=== PATIENT | male | born 1995 | race Two or more races ===

== ENCOUNTER 2024-01-12 16:13 | Inpatient (IN) ==
[2024-01-12 16:42] LABS: Basophils # (auto) 0.04 K/uL (0.00-0.20); Basophils % (auto) 0.6 %; Eosinophils # (auto) 0.04 K/uL (0.00-0.50); Eosinophils % (auto) 0.6 %; Hematocrit (blood only) 44.8 % (42.0-52.0); Hemoglobin 15.9 g/dl (14.0-18.0); Immature Granulocytes # (auto) 0.01 K/uL (0.01-0.20); Immature Granulocytes % (auto) 0.1 %; Lymphocytes # (auto) 2.14 K/uL (1.20-3.40); Lymphocytes % (auto) 30.3 %; Mean Corpuscular Hemoglobin 30.4 pg (25.0-34.0); Mean Corpuscular Hgb Conc 35.5 g/dL (32.0-36.0); Mean Corpuscular Volume 85.7 fL (80.0-100.0); Mean Platelet Volume 9.3 fL (9.4-12.4); Monocytes # (auto) 0.67 K/uL (0.11-0.59); Monocytes % (auto) 9.5 %; Neutrophils # (auto) 4.16 K/uL (1.40-6.50); Neutrophils % (auto) 58.9 %; Platelet Count 275 K/uL (130-400); RDW Coefficient of Variation 12.4 % (11.5-14.5); Red Blood Count 5.23 M/uL (4.70-6.10); White Blood Count 7.06 K/ul (4.8-10.8)
[2024-01-12] MEDS: fentaNYL citrate PF 100 MCG/2 ML VIAL IV STA (17:17)
--- NOTE | 2024-01-12 17:39 | Emergency Department Note ---
Impression & Plan SBO (small bowel obstruction), Abdominal pain ED Provider Note HISTORY OF PRESENT ILLNESS: Patient is a 28-year-old male presenting with abdominal pain. History is obtained via a friend who acts as hospice liaison. 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 Friend reports the patient developed diffuse abdominal pain starting earlier today. He states that it "feels like when I had abdominal surgery in [place]." No reported fevers today. Denies any nausea or diarrhea. Denies chest pain or shortness of breath. Complains of a stabbing diffuse abdominal pain. He is unsure of what the surgery in [place] was for his upper abdomen. Denies any recent antibiotic use. He takes no medications daily. He does occasionally smoke marijuana. ROS: as above PHYSICAL EXAM: Constitutional: Patient appears in no acute distress. HENT: Head: Normocephalic and atraumatic. Eyes: EOMI, PERRL Mouth/Throat: Mucous membranes moist. Neck: Trachea midline. Neck supple. Cardiovascular: RRR, No murmurs, rubs or gallops. Intact distal pulses. Pulmonary/Chest: No respiratory distress. Breath sounds clear and equal bilaterally. No wheezes or rales. Abdominal: Abdomen soft, no rebound or guarding. Diffuse tenderness to palpation. Musculoskeletal: No edema, tenderness or deformity noted. Skin: Warm and dry. No rash, erythema, pallor or cyanosis Psychiatric: Appropriate mood and affect for situation. Neurological: Alert and keenly responsive. CN II-XII grossly intact, moving all extremities equally and fully. MDM: - Vitals signs showed stable. - History obtained via patient and patient's friend (Quality Improvement Coordinator (Rn)). History as above. - Chronic conditions affecting care: none - Differential diagnoses include, but are not limited to: cholecystitis; pancreatitis; colitis; small bowel obstruction; ischemic gut - Order placed for continuous cardiac monitoring. At this time, monitor showed rate of 72 bpm with normal sinus rhythm, per my interpretation. - External medical records reviewed. - EKG interpreted by myself showed normal sinus rhythm. Rate 67 bpm. QT 358. No acute ischemic changes. Noted to have some ST elevations consistent with benign early repolarization. - Laboratory workup interpreted by myself showed normal WBC; normal lactate; stable electrolytes; normal troponin; normal lipase; normal liver function - UA negative for infection - Patient initially given 50 mcg IV fentanyl for pain control. However, he is still writhing around in pain on reassessment. He was given 4 mg IV morphine and 4 mg IV zofran. - CT abdomen/pelvis with IV contrast focally distended and fluid-filled loops of small bowel in the pelvis with a possible transition point identified concerning for small bowel obstruction. - Discussion was had with nurse case management about patient's case and need for admission - Hospitalist, Dr. Ruby, consulted for admission - Patient admitted to [facility]ist service for further evaluation and management. ASSESSMENT AND PLAN: Diagnosis: abdominal pain; small bowel obstruction Plan: admit Past Med/Surg History Problem List (Updated 01/12/24 @ 20:38 by Marta Low MD) Abdominal pain (Acute) SBO (small bowel obstruction) (Acute) Social History Smoking Status: Never smoker Feels Safe at Home: Yes Results & Data (ED) Vital Signs Vital Signs - 24 hr 01/12/24 16:17 01/12/24 16:36 01/12/24 16:45 Temperature 36.7 C Temperature Source Temporal Artery Scan Pulse Rate 76 63 Pulse Rate [Apical] Respiratory Rate 16 Respiratory Effort / Characteristics Non-Labored Spontaneous Respiratory Depth Normal Blood Pressure 103/60 Blood Pressure [Left Arm] Blood Pressure Mean 74 Blood Pressure Mean [Left Arm] Pulse Oximetry 99 Oxygen Delivery Method Room Air Room Air Sepsis Recent Fever Within 48 Hours No Sepsis New/Unexplained Change in Mental Status N/A Sepsis Action Taken by Nursing No Action Required 01/12/24 19:25 Temperature Temperature Source Pulse Rate Pulse Rate [Apical] 72 Respiratory Rate 18 Respiratory Effort / Characteristics Respiratory Depth Blood Pressure Blood Pressure [Left Arm] 124/68 Blood Pressure Mean Blood Pressure Mean [Left Arm] 86 Pulse Oximetry 98 Oxygen Delivery Method Sepsis Recent Fever Within 48 Hours Sepsis New/Unexplained Change in Mental Status Sepsis Action Taken by Nursing Laboratory Data 01/12/24 16:26 01/12/24 16:26 Lab Results 01/12/24 01/12/24 01/12/24 Range/Units 16:26 18:04 19:00 WBC 7.06 (4.8-10.8) K/ul RBC 5.23 (4.70-6.10) M/uL Hgb 15.9 (14.0-18.0) g/dl Hct 44.8 (42.0-52.0) % MCV 85.7 (80.0-100.0) fL MCH 30.4 (25.0-34.0) pg MCHC 35.5 (32.0-36.0) g/dL RDW Std Deviation 39.0 (36.4-46.3) fL RDW Coeff of Da 12.4 (11.5-14.5) % Plt Count 275 (130-400) K/uL MPV 9.3 L (9.4-12.4) fL Immature Gran % (Auto) 0.1 % Neut % (Auto) 58.9 % Lymph % (Auto) 30.3 % [place] % (Auto) 9.5 % Eos % (Auto) 0.6 % Baso % (Auto) 0.6 % Neut # (Auto) 4.16 (1.40-6.50) K/uL Lymph # (Auto) 2.14 (1.20-3.40) K/uL [place] # (Auto) 0.67 H (0.11-0.59) K/uL Eos # (Auto) 0.04 (0.00-0.50) K/uL Baso # (Auto) 0.04 (0.00-0.20) K/uL Immature Gran # (Auto) 0.01 (0.01-0.20) K/uL Sodium 134 L (136-145) mmol/L Potassium 4.0 (3.5-5.1) mmol/L Chloride 103 (98-107) mmol/L Carbon Dioxide 21 (21-32) mmol/L Anion Gap 10 (3-11) BUN 16 (6-23) mg/dl Creatinine 0.86 (0.6-1.4) mg/dl Est Cr Clr Drug Dosing Not Reportable Est GFR ( Amer) 136.8 ml/min Est GFR (Non-Af Amer) 118.0 ml/min BUN/Creatinine Ratio 18.6 (10-20) Glucose 113 H (70-99(Fasting)) mg/dl Lactate 1.0 (0.4-2.0) mmol/L Calcium 9.8 (8.6-10.3) mg/dl Total Bilirubin 0.6 (0.2-1.0) mg/dl AST 26 (13-39) U/L ALT 14 (7-52) U/L Alkaline Phosphatase 59 (34-104) U/L Troponin I High Sens (0-20) pg/ml Total Protein 7.8 (6.0-8.3) gm/dl Albumin 4.8 (3.4-5.0) gm/dl Globulin 3.0 (2.5-4.0) gm/dl Albumin/Globulin Ratio 1.6 (0.9-2) Lipase 15 (11-82) U/L Urine Color Yellow Urine Appearance Clear (Clear) Urine pH 8.5 H (4.5-7.5) Ur Specific [place] 1.021 (1.000-1.030) Urine Protein Negative (Negative) Urine Glucose (UA) Negative (Negative) Urine Ketones 1+ H (Negative) Urine Blood Negative (Negative) Urine Nitrite Negative (Negative) Urine Bilirubin Negative (Negative) Urine Urobilinogen Negative (Negative) Ur Leukocyte Esterase Negative (Negative) 01/12/24 Range/Units 19:28 WBC (4.8-10.8) K/ul RBC (4.70-6.10) M/uL Hgb (14.0-18.0) g/dl Hct (42.0-52.0) % MCV (80.0-100.0) fL MCH (25.0-34.0) pg MCHC (32.0-36.0) g/dL RDW Std Deviation (36.4-46.3) fL RDW Coeff of Da (11.5-14.5) % Plt Count (130-400) K/uL MPV (9.4-12.4) fL Immature Gran % (Auto) % Neut % (Auto) % Lymph % (Auto) % [place] % (Auto) % Eos % (Auto) % Baso % (Auto) % Neut # (Auto) (1.40-6.50) K/uL Lymph # (Auto) (1.20-3.40) K/uL [place] # (Auto) (0.11-0.59) K/uL Eos # (Auto) (0.00-0.50) K/uL Baso # (Auto) (0.00-0.20) K/uL Immature Gran # (Auto) (0.01-0.20) K/uL Sodium (136-145) mmol/L Potassium (3.5-5.1) mmol/L Chloride (98-107) mmol/L Carbon Dioxide (21-32) mmol/L Anion Gap (3-11) BUN (6-23) mg/dl Creatinine (0.6-1.4) mg/dl Est Cr Clr Drug Dosing Est GFR ( Amer) ml/min Est GFR (Non-Af Amer) ml/min BUN/Creatinine Ratio (10-20) Glucose (70-99(Fasting)) mg/dl Lactate (0.4-2.0) mmol/L Calcium (8.6-10.3) mg/dl Total Bilirubin (0.2-1.0) mg/dl AST (13-39) U/L ALT (7-52) U/L Alkaline Phosphatase (34-104) U/L Troponin I High Sens 2.8 (0-20) pg/ml Total Protein (6.0-8.3) gm/dl Albumin (3.4-5.0) gm/dl Globulin (2.5-4.0) gm/dl Albumin/Globulin Ratio (0.9-2) Lipase (11-82) U/L Urine Color Urine Appearance (Clear) Urine pH (4.5-7.5) Ur Specific [place] (1.000-1.030) Urine Protein (Negative) Urine Glucose (UA) (Negative) Urine Ketones (Negative) Urine Blood (Negative) Urine Nitrite (Negative) Urine Bilirubin (Negative) Urine Urobilinogen (Negative) Ur Leukocyte Esterase (Negative) Administered Medications Sodium Chloride (Nss) 1,000 mls @ 999 mls/hr IV .Q1H1M ONE Stop: 01/12/24 20:56 Last Admin: 01/12/24 20:18 Dose: 999 mls/hr Documented By: NENO Discontinued Medications Fentanyl Citrate (Fentanyl Citrate Pf 100 Mcg/2 Ml Vial) 50 mcg IV NOW STA Stop: 01/12/24 17:13 Last Admin: 01/12/24 17:17 Dose: 50 mcg Documented By: NENO Ioversol (Optiray 320 100ml) 93 ml IV ONCE ONE Stop: 01/12/24 19:07 Last Admin: 01/12/24 19:06 Dose: 93 ml Documented By: JOHAN Morphine Sulfate (Morphine Sulfate 4 Mg/Ml 1 Ml Carp\\Vial) 4 mg IV NOW STA Stop: 06/23/24 17:35 Last Admin: 01/12/24 17:59 Dose: 4 mg Documented By: NENO Ondansetron HCl (Ondansetron Inj 2 Mg/Ml 2 Ml Vial) 4 mg IV NOW STA Stop: 01/12/24 17:35 Last Admin: 01/12/24 17:59 Dose: 4 mg Documented By: NENO Imaging Data Radiologist's Impression: Abdomen/Pelvis CT 01/12/24 17:12 CT SCAN OF THE ABDOMEN AND PELVIS WITH IV CONTRAST CLINICAL HISTORY: Generalized abdominal pain. Vomiting. COMPARISON STUDY: No priors. TECHNIQUE: Following the IV administration of 93 cc of Optiray 320, CT scan of the abdomen and pelvis is performed from the lung bases to the proximal femora. Images are reviewed in the axial, sagittal, and coronal planes. IV contrast was administered without complication. A dose lowering technique was utilized adhering to the principles of ALARA. The examination is degraded by a paucity of intraperitoneal fat and lack of enteric contrast. CT DOSE: 349.96 mGy.cm FINDINGS: Lung bases: The heart is normal in size and without pericardial effusion. The lung bases are clear. Liver: The contrast-enhanced liver is normal in size, contour, and attenuation. There is no intrahepatic biliary ductal dilatation. The hepatic veins and portal veins are patent. Gallbladder: Contracted. Spleen: Normal in size and attenuation. Pancreas: Unremarkable. Adrenal glands: Unremarkable. Kidneys: The contrast enhanced kidneys are normal in size and without hydronephrosis. The kidneys enhance symmetrically. Abdominal vasculature: The abdominal aorta is normal in course and caliber. Bowel: There are distended and fluid-filled loops of small bowel in the pelvis which measure up to 3.2 cm diameter. A possible transition point is seen on image #20 of 55. There is no pneumatosis intestinalis or portal venous gas. The appendix is well-visualized and normal. Peritoneum: There is no intraperitoneal free air or abdominal ascites. Lymphadenopathy: None. Pelvic viscera: The bladder, prostate, and seminal vesicles are normal as visualized. Skeletal structures: No lytic or blastic lesions are seen. IMPRESSION: 1. There are focally distended and fluid-filled loops of small bowel in the pelvis. A possible transition point is identified and this likely represents a small bowel obstruction. Clinical correlation will be essential. 2. No intraperitoneal free air is identified. There is no pneumatosis intestinalis or portal venous gas. 3. Normal appendix. 4. Additional findings as above. ACT 112: Negative or not required by law. Electronically signed by: Stan Vigil M.D. 01/12/2024 8:01 PM Discharge Plan Visit Data Chief Complaint: Abdominal Pain Stated Complaint: ABDOMINAL PAIN ED Provider: Marta Low Discharge Problem: SBO (small bowel obstruction), Abdominal pain Forms Stand Alone Forms: [facility] Referrals Referrals: PCP,NO [Primary Care Provider] -
[2024-01-12 17:51] LABS: Aspartate Aminotransferase 26 U/L (13-39)
[2024-01-12 17:52] LABS: Alanine Aminotransferase 14 U/L (7-52); Albumin Globulin Ratio 1.6 (0.9-2); Albumin Level 4.8 gm/dl (3.4-5.0); Alkaline Phosphatase 59 U/L (34-104); Anion Gap 10 (3-11); BUN Creatinine Ratio 18.6 (10-20); Bilirubin,Total 0.6 mg/dl (0.2-1.0); Blood Urea Nitrogen 16 mg/dl (6-23); Calcium 9.8 mg/dl (8.6-10.3); Carbon Dioxide 21 mmol/L (21-32); Chloride 103 mmol/L (98-107); Est GFR (African American) 136.8 ml/min; Glucose 113 mg/dl (70-99(Fasting)); Lipase 15 U/L (11-82); Sodium 134 mmol/L (136-145); Total Protein 7.8 gm/dl (6.0-8.3)
[2024-01-12] MEDS: MoRPHine SULFATE 4 MG/ML 1 ML CARP\\VIAL IV STA (17:59)
[2024-01-12] MEDS: ONDANSETRON INJ 2 MG/ML 2 ML VIAL IV STA (17:59)
[2024-01-12] MEDS: OPTIRAY 320 100ml IV ONE (19:06)
[2024-01-12 19:18] LABS: Appearance Urine Clear (Clear); Bilirubin Urine Negative (Negative); Blood Urine Negative (Negative); Color Urine Yellow; Glucose Urine UA Negative (Negative); Ketones Urine 1+ (Negative); Leukocyte Esterase Urine Negative (Negative); Nitrite Urine Negative (Negative); Protein Urine Negative (Negative); Specific Gravity Urine 1.021 (1.000-1.030); Urobilinogen Urine Negative (Negative); pH Urine 8.5 (4.5-7.5)
--- NOTE | 2024-01-12 20:03 | CT Scan Report ---
CT SCAN OF THE ABDOMEN AND PELVIS WITH IV CONTRAST CLINICAL HISTORY: Generalized abdominal pain. Vomiting. COMPARISON STUDY: No priors. TECHNIQUE: Following the IV administration of 93 cc of Optiray 320, CT scan of the abdomen and pelvi s is performed from the lung bases to the proximal femora. Images are reviewed in the axial, sagittal , and coronal planes. IV contrast was administered without complication. A dose lowering technique wa s utilized adhering to the principles of ALARA. The examination is degraded by a paucity of intraperi toneal fat and lack of enteric contrast. CT DOSE: 349.96 mGy.cm FINDINGS: Lung bases: The heart is normal in size and without pericardial effusion. The lung bases are clear. Liver: The contrast-enhanced liver is normal in size, contour, and attenuation. There is no intrahepa tic biliary ductal dilatation. The hepatic veins and portal veins are patent. Gallbladder: Contracted. Spleen: Normal in size and attenuation. Pancreas: Unremarkable. Adrenal glands: Unremarkable. Kidneys: The contrast enhanced kidneys are normal in size and without hydronephrosis. The kidneys enh ance symmetrically. Abdominal vasculature: The abdominal aorta is normal in course and caliber. Bowel: There are distended and fluid-filled loops of small bowel in the pelvis which measure up to 3. 2 cm diameter. A possible transition point is seen on image #20 of 55. There is no pneumatosis intest inalis or portal venous gas. The appendix is well-visualized and normal. Peritoneum: There is no intraperitoneal free air or abdominal ascites. Lymphadenopathy: None. Pelvic viscera: The bladder, prostate, and seminal vesicles are normal as visualized. Skeletal structures: No lytic or blastic lesions are seen. IMPRESSION: 1. There are focally distended and fluid-filled loops of small bowel in the pelvis. A possible transi tion point is identified and this likely represents a small bowel obstruction. Clinical correlation w ill be essential. 2. No intraperitoneal free air is identified. There is no pneumatosis intestinalis or portal venous g as. 3. Normal appendix. 4. Additional findings as above. ACT 112: Negative or not required by law. Electronically signed by: Stan Vigil M.D. 01/12/2024 8:01 PM
[2024-01-12] MEDS: SODIUM CHLORIDE 0.9% 1,000 ML IV ONE (20:18)
--- NOTE | 2024-01-13 03:16 | History & Physical Report ---
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 Currently the pain is improved with pain medication. Denies any nausea. Had a bowel movement earlier in the morning. Currently not passing gas. Denies any fevers. Denies chest pain or shortness of breath. No cough. No headache. No runny nose or sore throat. Prior to this event patient states he was walking and climbing steps okay. Patient also reports episodes of loss of perceptions sometimes. Last time it happened when he was watching TV when suddenly felt everything was in the distance and then lost perception of the surroundings for few minutes and during episode he could not speak and after he comes back from the episode he seems confused for about 10 minutes and becomes normal. Denies any tongue biting or incontinence during this episode. Patient smokes marijuana daily. Smokes electric cigarette daily. Drinks alcohol about 3 times a week but not heavily. Denies any other drug use. Currently resting comfortably and hemodynamically stable. Some of the H&P got from his brother who translated for him and some from translation services. Patient is Austrian-speaking. small bowel obstruction came with abdominal pain and CAT scan showing small bowel obstruction history of abdominal surgeries currently pain seems to improve sluggish bowel sounds on exam n.p.o., IV fluids, IV pain meds., IV antiemetics as needed KUB in AM. Surgery consult in a.m. for further recommendations abnormal EKG denies chest pain 2 sets of troponin negative we will follow repeat troponin and echo cardiac consult in a.m. for further recommendations questionable seizures patient has the episodes of loss of perception of surroundings and seems confused after the episode will get EEG, CT head and neuroconsult. DVT prophylaxis Lovenox disposition med/telemetry full code. 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 Currently the pain is improved with pain medication. Denies any nausea. Had a bowel movement earlier in the morning. Currently not passing gas. Denies any fevers. Denies chest pain or shortness of breath. No cough. No headache. No runny nose or sore throat. Prior to this event patient states he was walking and climbing steps okay. Patient also reports episodes of loss of perceptions sometimes. Last time it happened when he was watching TV when suddenly felt everything was in the distance and then lost perception of the surroundings for few minutes and during episode he could not speak and after he comes back from the episode he seems confused for about 10 minutes and becomes normal. Denies any tongue biting or incontinence during this episode. Patient smokes marijuana daily. Smokes electric cigarette daily. Drinks alcohol about 3 times a week but not heavily. Denies any other drug use. Currently resting comfortably and hemodynamically stable. Some of the H&P got from his brother who translated for him and some from translation services. Patient is Austrian-speaking. Past medical's. As mentioned above. Past surgical history. Abdominal surgery x 2. Social history. Smokes e-cigarettes daily. Smokes marijuana daily. Alcohol about 3 times a week but no heavy drinking. No other drug use. Family history. Denies any family history. Allergies Allergy/AdvReac Type Severity Reaction Status Date / Time No Known Allergies Allergy Unverified 01/12/24 23:11 Home Medications Medication Instructions Recorded Confirmed Type No Known Home Medications 01/12/24 01/12/24 History Past Med/Surg History Problem List (Updated 01/13/24 @ 07:28 by AMANDA Corley) Abnormal EKG Abdominal pain (Acute) SBO (small bowel obstruction) (Acute) Social History Smoking Status: Current every day smoker Tobacco Type: E-cigarettes / Vaping Hx Alcohol Use: No Hx Substance Use: Yes Preferred Language: Austrian Communication Tools: Language Line Telemetry Registered Nurse Telemetry Registered Nurse Required: Yes Beliefs That Will Affect Care: None Current Living Situation: Family Feels Safe at Home: Yes Safety Concerns: Feels Safe At This Time Review of Systems Review of Systems: All systems reviewed & are unremarkable except as noted in HPI & below Physical Exam Physical Exam: General-Not in distress Head- atraumatic Eyes- PERRL. ENT- oropharynx clear Neck- supple, no JVD. Lungs- clear to auscultation no wheezing or crackles. Heart- regular rate and rhythm; no murmur, no gallop. Abdomen- sluggish bowel sounds, soft, nontender, no distension. Surgical scar seen. Extremities- no pretibial edema, no erythema seen. Neuro- alert, oriented PERRL, no facial palsy; no dysarthria; moves extremities. Results & Data Results & Data Vital Signs (Past 12 Hours) Vital Signs Temp Pulse Pulse Resp BP BP Pulse Ox 01/13/24 02:29 54 L 16 95/56 L 99 01/13/24 01:08 82 18 116/76 98 01/13/24 00:36 68 01/12/24 23:30 58 L 17 97 01/12/24 21:00 57 L 16 114/72 98 01/12/24 20:39 63 01/12/24 19:25 72 18 124/68 98 01/12/24 16:45 63 01/12/24 16:36 01/12/24 16:17 36.7 C 76 16 103/60 99 O2 Del Method 01/13/24 02:29 Room Air 01/13/24 01:08 Room Air 01/13/24 00:36 01/12/24 23:30 Room Air 01/12/24 21:00 Room Air 01/12/24 20:39 01/12/24 19:25 01/12/24 16:45 01/12/24 16:36 Room Air 01/12/24 16:17 Room Air Diagnostic Findings Laboratory Results WBC 7.06 K/ul (4.8-10.8) 01/12/24 16:26 RBC 5.23 M/uL (4.70-6.10) 01/12/24 16:26 Hgb 15.9 g/dl (14.0-18.0) 01/12/24 16:26 Hct 44.8 % (42.0-52.0) 01/12/24 16:26 MCV 85.7 fL (80.0-100.0) 01/12/24 16: MCH 30.4 pg (25.0-34.0) 01/12/24 16: MCHC 35.5 g/dL (32.0-36.0) 01/12/24 16: RDW Std Deviation 39.0 fL (36.4-46.3) 01/12/24 16: RDW Coeff of Da 12.4 % (11.5-14.5) 01/12/24 16: Plt Count 275 K/uL (130-400) 01/12/24 16: MPV 9.3 fL (9.4-12.4) L 01/12/24 16: Immature Gran % (Auto) 0.1 % 01/12/24 16: Neut % (Auto) 58.9 % 01/12/24 16: Lymph % (Auto) 30.3 % 01/12/24 16: [place] % (Auto) 9.5 % 01/12/24 16: Eos % (Auto) 0.6 % 01/12/24 16:26 Baso % (Auto) 0.6 % 01/12/24 16:26 Neut # (Auto) 4.16 K/uL (1.40-6.50) 01/12/24 16: Lymph # (Auto) 2.14 K/uL (1.20-3.40) 01/12/24 16: [place] # (Auto) 0.67 K/uL (0.11-0.59) H 01/12/24 16: Eos # (Auto) 0.04 K/uL (0.00-0.50) 01/12/24 16: Baso # (Auto) 0.04 K/uL (0.00-0.20) 01/12/24 16: Immature Gran # (Auto) 0.01 K/uL (0.01-0.20) 01/12/24 16: Sodium 134 mmol/L (136-145) L 01/12/24 16: Potassium 4.0 mmol/L (3.5-5.1) 01/12/24 16: Chloride 103 mmol/L (98-107) 01/12/24 16: Carbon Dioxide 21 mmol/L (21-32) 01/12/24 16:26 Anion Gap 10 (3-11) 01/12/24 16:26 BUN 16 mg/dl (6-23) 01/12/24 16:26 Creatinine 0.86 mg/dl (0.6-1.4) 01/12/24 16:26 Est Cr Clr Drug Dosing Not Reportable 01/12/24 16:26 Est GFR ( Amer) 136.8 ml/min 01/12/24 16:26 Est GFR (Non-Af Amer) 118.0 ml/min 01/12/24 16:26 BUN/Creatinine Ratio 18.6 (10-20) 01/12/24 16:26 Glucose 113 mg/dl (70-99(Fasting)) H 01/12/24 16:26 Lactate 1.0 mmol/L (0.4-2.0) 01/12/24 18:04 Calcium 9.8 mg/dl (8.6-10.3) 01/12/24 16:26 Total Bilirubin 0.6 mg/dl (0.2-1.0) 01/12/24 16:26 AST 26 U/L (13-39) 01/12/24 16:26 ALT 14 U/L (7-52) 01/12/24 16:26 Alkaline Phosphatase 59 U/L (34-104) 01/12/24 16:26 Troponin I High Sens 2.7 pg/ml (0-20) 01/12/24 23:24 Total Protein 7.8 gm/dl (6.0-8.3) 01/12/24 16:26 Albumin 4.8 gm/dl (3.4-5.0) 01/12/24 16:26 Globulin 3.0 gm/dl (2.5-4.0) 01/12/24 16:26 Albumin/Globulin Ratio 1.6 (0.9-2) 01/12/24 16:26 Lipase 15 U/L (11-82) 01/12/24 16:26 Urine Color Yellow 01/12/24 19:00 Urine Appearance Clear (Clear) 01/12/24 19:00 Urine pH 8.5 (4.5-7.5) H 01/12/24 19:00 Ur Specific [place] 1.021 (1.000-1.030) 01/12/24 19:00 Urine Protein Negative (Negative) 01/12/24 19:00 Urine Glucose (UA) Negative (Negative) 01/12/24 19:00 Urine Ketones 1+ (Negative) H 01/12/24 19:00 Urine Blood Negative (Negative) 01/12/24 19:00 Urine Nitrite Negative (Negative) 01/12/24 19:00 Urine Bilirubin Negative (Negative) 01/12/24 19:00 Urine Urobilinogen Negative (Negative) 01/12/24 19:00 Ur Leukocyte Esterase Negative (Negative) 01/12/24 19:00 Impressions Abdomen/Pelvis CT 01/12/24 17:12 CT SCAN OF THE ABDOMEN AND PELVIS WITH IV CONTRAST CLINICAL HISTORY: Generalized abdominal pain. Vomiting. COMPARISON STUDY: No priors. TECHNIQUE: Following the IV administration of 93 cc of Optiray 320, CT scan of the abdomen and pelvis is performed from the lung bases to the proximal femora. Images are reviewed in the axial, sagittal, and coronal planes. IV contrast was administered without complication. A dose lowering technique was utilized adhering to the principles of ALARA. The examination is degraded by a paucity of intraperitoneal fat and lack of enteric contrast. CT DOSE: 349.96 mGy.cm FINDINGS: Lung bases: The heart is normal in size and without pericardial effusion. The lung bases are clear. Liver: The contrast-enhanced liver is normal in size, contour, and attenuation. There is no intrahepatic biliary ductal dilatation. The hepatic veins and portal veins are patent. Gallbladder: Contracted. Spleen: Normal in size and attenuation. Pancreas: Unremarkable. Adrenal glands: Unremarkable. Kidneys: The contrast enhanced kidneys are normal in size and without hydronephrosis. The kidneys enhance symmetrically. Abdominal vasculature: The abdominal aorta is normal in course and caliber. Bowel: There are distended and fluid-filled loops of small bowel in the pelvis which measure up to 3.2 cm diameter. A possible transition point is seen on image #20 of 55. There is no pneumatosis intestinalis or portal venous gas. The appendix is well-visualized and normal. Peritoneum: There is no intraperitoneal free air or abdominal ascites. Lymphadenopathy: None. Pelvic viscera: The bladder, prostate, and seminal vesicles are normal as visualized. Skeletal structures: No lytic or blastic lesions are seen. IMPRESSION: 1. There are focally distended and fluid-filled loops of small bowel in the pelvis. A possible transition point is identified and this likely represents a small bowel obstruction. Clinical correlation will be essential. 2. No intraperitoneal free air is identified. There is no pneumatosis intestinalis or portal venous gas. 3. Normal appendix. 4. Additional findings as above. ACT 112: Negative or not required by law. Electronically signed by: Stan Vigil M.D. 01/12/2024 8:01 PM ECG Additional Comments: ECG. Normal sinus rhythm with sinus arrhythmia rate of 67. ST elevation consider early repolarization. Code Status & VTE Plan VTE Prophylaxis Plan VTE Prophylaxis will be ordered: Yes
[2024-01-13] MEDS ORDERED: NITROGLYCERIN SL 0.4 MG/TAB TAB SL PRN (05:20)
[2024-01-13] MEDS ORDERED: ACETAMINOPHEN 1,000 MG/100 ML VIAL IV PRN (05:20)
[2024-01-13] MEDS ORDERED: ONDANSETRON INJ 2 MG/ML 2 ML VIAL IV PRN (05:20)
[2024-01-13] MEDS ORDERED: HYDROmorphone INJ 0.5 MG/0.5 ML SYR IV PRN (05:20)
[2024-01-13] MEDS: D5W AND 1/2NSS 1,000 ML IV SCH (06:16)
--- NOTE | 2024-01-13 07:29 | Cardiology Consultation ---
Date of Consultation January 13, 2024 Assessment & Plan (1) SBO (small bowel obstruction): Plan Impression: 28-year-old male who presented to [facility] with abdominal pain found to have a small bowel obstruction. Plan: Abnormal EKG: SBO: EKG on admission showed early repolarization-- normal findings Echocardiogram revealing a structurally normal heart. HS Trop negative x3 1. No further workup warranted from a cardiac standpoint. Will defer to primarily service/gen surgery for management of SOB. No cardiac contraindications to proceeding with surgery if needed. Case discussed with Dr. Martinez. Cardiology will sign off. I spent a total of 40 minutes on the date of service in preparation, delivery, and documentation of the care provided to the patient excluding any time spent in the performance of separately billed services. AMANDA Grant Department of Cardiology, [facility] This chart was completed in part utilizing Speech Voice Recognition Software. Grammatical errors, random word insertions, pronoun errors, and incomplete sentences are an occasional consequence of this system due to software limitations, ambient noise, and hardware issues. Any formal questions or concerns about the content, text, or information contained within the body of this dictation should be directly addressed to the provider for clarification. Supervising Physician Co-Signing Physician Notes Attending attestation: Case reviewed with the advanced practitioner. I have personally performed a history and physical examination on the patient. I have reviewed the advanced practitioner's documentation on the date of service referenced in note, and I agree with, and take responsibility for the plan of care. Subjective: Patient without symptoms suggestive angina Data: High sensitive troponin levels negative x 3 A single EKG was performed on 01/12/2024 at 20: 14 hours revealing sinus rhythm at 67 bpm with sinus arrhythmia, diffuse mild J-point elevation consistent with early repolarization especially given patient's age and thin body habitus. Impression/ Plan: Diffuse J-point elevation consistent with early repolarization on EKG, normal variant. Normal resting echocardiogram with no structural heart disease. Recommend ongoing treatment for bowel obstruction. No further cardiac testing felt to be indicated. I spent a total of 20 minutes coordinating, documenting, and providing care for this patient excluding time spent in the performance of separately billed services or time spent by another provider. Martin Martinez DO History of Present Illness Reason for Consultation: Abnormal EKG Requesting Physician: [facility] Attending Physician: Sheela Griffin MD History of Present Illness 28-year-old Amharic speaking male with no pertinent cardiac history. 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 Presented to [facility] emergency department yesterday due to severe abdominal discomfort and was found to have a small bowel obstruction on CT of the abdomen. There was concern regarding questionable seizures as patient has had episodes in the past with loss of perception. CT of the head and EEG pending. Neuro consulted. An EKG was performed showing SR with early repolarization. High-sensitivity troponins negative x 2. Echocardiogram revealing a structurally normal heart. Upon entrance into the room patient resting in bed. Brother at bedside assisting with translation. No acute cardiac concerns. Having stomach discomfort. States he had similar symptoms while in [place] in 2021 which prompted surgery. Denies chest pain, shortness of breath, palpitations, dizziness, syncope or near syncope. No orthopnea, PND, or increased lower extremity edema. No fever, chills, cough, hematochezia, melena, or hemoptysis. Denies previous myocardial infarction, cardiac catheterization, coronary artery bypass grafting, a history of congestive heart failure, valvular disease or rheumatic fever, or history of arrhythmia. Vapes daily. Smokes marijuana daily. No other drug use Drinks 2-3 beers daily. Works at a [employer]. 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 as a as well as 2021 while in [place] Allergies Allergy/AdvReac Type Severity Reaction Status Date / Time No Known Allergies Allergy Unverified 01/12/24 23:11 Home Medications Medication Instructions Recorded Confirmed Type No Known Home Medications 01/12/24 01/12/24 History Patient History Social History Smoking Status: Current every day smoker Tobacco Type: E-cigarettes / Vaping Hx Alcohol Use: No Hx Substance Use: Yes Preferred Language: Amharic Communication Tools: Language Line Wall Man Wall Man Required: Yes Beliefs That Will Affect Care: None Current Living Situation: Family Feels Safe at Home: Yes Safety Concerns: Feels Safe At This Time Review of Systems Review of Systems: All systems reviewed & are unremarkable except as noted in HPI & below Physical Exam Constitutional: WD/WN, vitals as above + ill appearing; no acute distress ENMT: external ear and nose normal, oropharynx normal Neck: normal visual inspection and trachea midline Respiratory: normal respiratory effort, lungs clear to auscultation Cardiovascular: RRR, no murmur, no edema Vessels: no JVD Extremities: no edema Gastrointestinal (Abdomen): Inspection/Auscultation: abdomen normal to inspection; abdomen not distended Percussion/Palpation: + abdomen tender and abdomen soft Skin: no rashes, warm and dry Neurologic: PERRL, EOMI, accommodation nl, no face palsy, no dysarthria Psychiatric: A+Ox3, euthymic affect Results & Data Vital Signs (Past 12 Hours) Vital Signs Pulse Pulse Resp BP BP Pulse Ox O2 Del Method 01/13/24 05:33 69 16 100/58 L 96 Room Air 01/13/24 05:09 55 L 25 H 97 01/13/24 04:09 53 L 01/13/24 04:00 57 L 15 96/52 L 95 01/13/24 03:00 56 L 13 134/75 97 Room Air 01/13/24 02:29 54 L 16 95/56 L 99 Room Air 01/13/24 01:08 82 18 116/76 98 Room Air 01/13/24 00:36 68 01/12/24 23:30 58 L 17 97 Room Air 01/12/24 21:00 57 L 16 114/72 98 Room Air 01/12/24 20:39 63 01/12/24 19:25 72 18 124/68 98 Laboratory Results Cardiac Enzymes 01/12/24 01/12/24 01/12/24 Range/Units 16:26 19:28 23:24 AST 26 (13-39) U/L Troponin I High Sens 2.8 2.7 (0-20) pg/ml 01/13/24 Range/Units 07:07 AST (13-39) U/L Troponin I High Sens 2.5 (0-20) pg/ml CBC 01/12/24 01/13/24 Range/Units 16:26 07:07 WBC 7.06 10.05 (4.8-10.8) K/ul RBC 5.23 5.00 (4.70-6.10) M/uL Hgb 15.9 15.3 (14.0-18.0) g/dl Hct 44.8 44.1 (42.0-52.0) % Plt Count 275 271 (130-400) K/uL Neut # (Auto) 4.16 6.78 H (1.40-6.50) K/uL Lymph # (Auto) 2.14 1.99 (1.20-3.40) K/uL [place] # (Auto) 0.67 H 1.07 H (0.11-0.59) K/uL Eos # (Auto) 0.04 0.16 (0.00-0.50) K/uL Baso # (Auto) 0.04 0.03 (0.00-0.20) K/uL Comprehensive Metabolic Panel 01/12/24 01/13/24 Range/Units 16:26 07:07 Sodium 134 L 136 (136-145) mmol/L Potassium 4.0 4.2 (3.5-5.1) mmol/L Chloride 103 106 (98-107) mmol/L Carbon Dioxide 21 28 (21-32) mmol/L BUN 16 9 (6-23) mg/dl Creatinine 0.86 0.98 (0.6-1.4) mg/dl Glucose 113 H 101 H (70-99(Fasting)) mg/dl Calcium 9.8 8.8 (8.6-10.3) mg/dl AST 26 (13-39) U/L ALT 14 (7-52) U/L Alkaline Phosphatase 59 (34-104) U/L Total Protein 7.8 (6.0-8.3) gm/dl Albumin 4.8 (3.4-5.0) gm/dl Intake and Output 01/12/24 01/13/24 01/13/24 22:59 06:59 14:59 Intake Total 1000 / 1000 Balance 1000 / 1000 Intake: IV 1000 / 1000 Sodium Chloride 0.9% 1,000 ml @ 1000 / 1000 999 mls/hr IV .Q1H1M ONE Rx#: [id number] Other: Weight 60 kg 60 kg Weight Measurement Method Built in [facility] Built in [facility]
--- NOTE | 2024-01-13 07:32 | CT Scan Report ---
CT head/brain wo con CLINICAL HISTORY: periods of loss of perception Technique: Contiguous axial CT images of the head were acquired from the base of the skull to the navdeep wyatt without intravenous contrast administration. Images were viewed in brain, subdural and [facility]. Automated dose lowering techniques and/or adjustment according to patient size were utilized for this exam. Comparison: None available at the time of this dictation. Findings: The ventricles, basal cisterns, and cerebral sulci are normal. There is no acute intracranial hemorrh age or evidence of acute territorial infarction. Neither mass effect, shift of the midline structures , nor abnormal extra-axial fluid collections are shown. Imaged portions of the paranasal sinuses and mastoid air cells are clear. The orbits appear normal. There are no acute fractures of the calvaria or scalp swelling. Impression: No acute intracranial hemorrhage, no evidence of acute territorial infarction or other acute intracra nial disease process. ACT 112: Negative or not required by law. Electronically signed by: Deyvi Bruner M.D. 01/13/2024 7:31 AM
--- NOTE | 2024-01-13 07:44 | Electrocardiogram Report ---
Test Reason : Blood Pressure : / mmHG Vent. Rate : 067 BPM Atrial Rate : 067 BPM P-R Int : 150 ms QRS Dur : 084 ms QT Int : 358 ms P-R-T Axes : 067 080 067 degrees QTc Int : 378 ms Normal sinus rhythm with sinus arrhythmia Minor ST elevation, most consistent with repolarization variant Borderline ECG No previous ECGs available Confirmed by Matthew Espinoza ([id number]) on 01/13/2024 7:43:56 AM Referred By: REFERRED SELF Confirmed By:Matthew Espinoza
[2024-01-13 07:46] LABS: BUN Creatinine Ratio 9.2 (10-20); Calcium 8.8 mg/dl (8.6-10.3); Creatinine Clr Calc Pharmacy 95.2 ml/min; Est GFR (African American) 121.1 ml/min; Est GFR (Non-African American) 104.5 ml/min; Magnesium 1.8 mg/dl (1.7-2.4); Potassium 4.2 mmol/L (3.5-5.1)
[2024-01-13 07:51] LABS: Troponin I High Sensitivity 2.5 pg/ml (0-20)
[2024-01-13 07:59] LABS: Basophils # (auto) 0.03 K/uL (0.00-0.20); Basophils % (auto) 0.3 %; Eosinophils # (auto) 0.16 K/uL (0.00-0.50); Eosinophils % (auto) 1.6 %; Hematocrit (blood only) 44.1 % (42.0-52.0); Hemoglobin 15.3 g/dl (14.0-18.0); Immature Granulocytes # (auto) 0.02 K/uL (0.01-0.20); Immature Granulocytes % (auto) 0.2 %; Lymphocytes # (auto) 1.99 K/uL (1.20-3.40); Lymphocytes % (auto) 19.8 %; Mean Corpuscular Hemoglobin 30.6 pg (25.0-34.0); Mean Corpuscular Hgb Conc 34.7 g/dL (32.0-36.0); Mean Corpuscular Volume 88.2 fL (80.0-100.0); Mean Platelet Volume 9.9 fL (9.4-12.4); Monocytes # (auto) 1.07 K/uL (0.11-0.59); Monocytes % (auto) 10.6 %; Neutrophils # (auto) 6.78 K/uL (1.40-6.50); Neutrophils % (auto) 67.5 %; Platelet Count 271 K/uL (130-400); RDW Coefficient of Variation 12.6 % (11.5-14.5); RDW Standard Deviation 41.1 fL (36.4-46.3); White Blood Count 10.05 K/ul (4.8-10.8)
--- NOTE | 2024-01-13 08:21 | XRay Report ---
XR KUB/Abdomen 1 view CLINICAL HISTORY: sbo TECHNIQUE: 1 view of the abdomen was obtained. Comparison: None available at the time of this dictation. FINDINGS: Lung bases are unremarkable. The osseous structures are grossly unremarkable. The bowel gas pattern i s nonobstructive. Small stool burden is seen. IMPRESSION: Nonobstructive bowel gas pattern. ACT 112: Negative or not required by law. Electronically signed by: Deyvi Bruner M.D. 01/13/2024 8:19 AM
[2024-01-13] MEDS: ENOXAPARIN INJ 40 MG/0.4 ML SYR SQ SCH (09:38)
--- NOTE | 2024-01-13 10:14 | Surgery Consultation ---
Date of Consultation January 13, 2024 History of Present Illness Attending Physician: Sheela Griffin MD Allergies Allergy/AdvReac Type Severity Reaction Status Date / Time No Known Allergies Allergy Unverified 01/12/24 23:11 Home Medications Medication Instructions Recorded Confirmed Type No Known Home Medications 01/12/24 01/12/24 History Patient History Social History Smoking Status: Current every day smoker Tobacco Type: E-cigarettes / Vaping Hx Alcohol Use: No Hx Substance Use: Yes Preferred Language: Citizen Of [place] Communication Tools: Language Line Division Order Analyst Division Order Analyst Required: Yes Beliefs That Will Affect Care: None Current Living Situation: Family Feels Safe at Home: Yes Safety Concerns: Feels Safe At This Time Results & Data Vital Signs (Past 12 Hours) Vital Signs Pulse Pulse Resp BP BP Pulse Ox O2 Del Method 01/13/24 09:30 56 L 19 97/54 L 95 01/13/24 08:30 63 29 H 97/70 L 99 01/13/24 07:33 60 14 99 01/13/24 07:00 52 L 10 L 99 01/13/24 06:42 57 L 17 100 01/13/24 06:12 55 L 15 99 01/13/24 05:33 69 16 100/58 L 96 Room Air 01/13/24 05:09 55 L 25 H 97 01/13/24 04:09 53 L 01/13/24 04:00 57 L 15 96/52 L 95 01/13/24 03:00 56 L 13 134/75 97 Room Air 01/13/24 02:29 54 L 16 95/56 L 99 Room Air 01/13/24 01:08 82 18 116/76 98 Room Air 01/13/24 00:36 68 01/12/24 23:30 58 L 17 97 Room Air PG Care Time/CCT Total # of Minutes Spent Total Time Spent with Patient: Total time spent is greater than 50% in coordination of care (as documented) at patient's floor/unit and/or counseling patient: Coding
--- NOTE | 2024-01-13 12:03 | Surgery Consultation ---
Date of Consultation January 13, 2024 Assessment & Plan (1) SBO (small bowel obstruction): His CT and KUB images were personally viewed and interpreted by myself He is feeling better and if continues to pass flatus, could try clear liquids later today No plans for any surgical intervention Will follow History of Present Illness Reason for Consultation: Small bowel obstruction Attending Physician: Sheela Griffin MD History of Present Illness This is a 28-year-old male who started with generalized abdominal pain around 2 AM. He states that it was dull and came in waves similar to another time he had an intestinal obstruction. No aggravating or relieving factors. He has had previous abdominal surgeries in [place] with most recent being 2 years ago. He states he has no abdominal pain at this point and is passing flatus. He had a normal BM yesterday. Denies any fevers or chills. 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 Lacer Required: Yes Beliefs That Will Affect Care: None Current Living Situation: Family Feels Safe at Home: Yes Safety Concerns: Feels Safe At This Time Review of Systems Constitutional: no fever and no chills Eyes: no blind spots and no worsening vision Ear, Nose, Mouth, Throat: no ear pain and no hearing loss Respiratory: no cough and no dyspnea Cardiovascular: no chest pain and no dyspnea on exertion Gastrointestinal: + abdominal pain; no nausea and no vomit ing Genitourinary: no dysuria or no difficulty urinating Musculoskeletal: no back pain and no neck pain Integumentary: no acne, no skin ulcer and no erythema Neurologic: no gait abnormality and no headache(s) Psychiatric: no behavioral changes and no depression Hematologic / Lymphatic: no easy bleeding and no easy bruising Physical Exam Constitutional: WD/WN, vitals as above Eyes: PERRL, conjunctivae normal, anicteric sclerae ENMT: external ear and nose normal, oropharynx normal Neck: trachea midline, no thyromegaly Respiratory: normal respiratory effort, lungs clear to auscultation Cardiovascular: RRR, no murmur, no edema Gastrointestinal (Abdomen): Inspection/Auscultation: abdomen normal to inspection; abdomen not distended Percussion/Palpation: abdomen soft; abdomen nontender and no guarding Musculoskeletal: no cyanosis or clubbing, extremities motor strength 5/5 Skin: no rashes, warm and dry Neurologic: PERRL, EOMI, accommodation nl, no face palsy, no dysarthria Psychiatric: A+Ox3, euthymic affect Results & Data Vital Signs (Past 12 Hours) Vital Signs Pulse Pulse Resp BP BP Pulse Ox O2 Del Method 01/13/24 09:30 56 L 19 97/54 L 95 01/13/24 08:30 63 29 H 97/70 L 99 01/13/24 07:33 60 14 99 01/13/24 07:00 52 L 10 L 99 01/13/24 06:42 57 L 17 100 01/13/24 06:12 55 L 15 99 01/13/24 05:33 69 16 100/58 L 96 Room Air 01/13/24 05:09 55 L 25 H 97 01/13/24 04:09 53 L 01/13/24 04:00 57 L 15 96/52 L 95 01/13/24 03:00 56 L 13 134/75 97 Room Air 01/13/24 02:29 54 L 16 95/56 L 99 Room Air 01/13/24 01:08 82 18 116/76 98 Room Air 01/13/24 00:36 68 PG Care Time/CCT Total # of Minutes Spent Total Time Spent with Patient: Total time spent is greater than 50% in coordination of care (as documented) at patient's floor/unit and/or counseling patient: Coding Level of Care Code 64195 OFFICE CONSULT LVL Diagnoses SBO (small bowel obstruction) K56.609
--- NOTE | 2024-01-13 14:23 | Communication Note ---
Date of Service: January 13, 2024 patient evaluated at bedside. Brother facilitated discussion at patient's request. Pain improved, reports some gas. Concern for staring spells reported. no cardiac concern Exam with soft abdomen, nontender #SBO Continue IVF CLD this evening antiemetics and analgesia prn #c/f partial seizure -EEG pending -MRI ordered -Neurology: IV keppra BID, plan to file pendot paperwork per neurology, plan for OP follow up #Abnormal EKG Cards: suggestive of early repolarization, no other abnormality, no further management -CTM rest of plan per H&P
--- NOTE | 2024-01-13 14:46 | Neurology Consultation ---
Date of Consultation January 13, 2024 Assessment & Plan (1) Alterations of sensations: Concern remains for focal sensory aware seizures No Driving Per [place] State Law Recommend continued work up to include the following: MRI brain with and without contrast Recommend obtain EEG Provide seizure precautions Utilize benzodiazepines emergently for any breakthrough clinical seizure like activity Recommend 500mg Keppra BID Continue frequent neurological assessments Obtain stat CT brain without contrast for any acute neurological decline Continue to monitor/control blood pressure & blood glucose Continue to monitor telemetry closely Recommend ZioPatch at DC if no evidence of arrhythmia during inpatient monitoring Continue to monitor renal and hepatic function, keep euvolemic Metabolic workup should include hgbA1c, fasting lipids, homocysteine, TSH, D Dimer, RPR, urinalysis Ok from neurology perspective for VTE prophylaxis Telehealth Consultation Telehealth Information Telehealth Information: I performed this visit using a real-time telehealth connection between my location and the patients location ([facility]). After connecting through interactive tele-video, patient was identified by name and date of and/or wristband check.Patient (or authorized healthcare strategic partnership representative) was informed that this was a telemedicine visit and it was being conducted confidentially over secure lines. My office door was closed and no one else was present in the room with me.Patient (or authorized healthcare strategic partnership representative) provided consent to proceed with the visit, expressed an understanding of privacy and security of the telemedicine visit, and gave permission to have a hospital strategic partnership representative in the room in order to assist with the visit and to conduct portions of the visit, as needed. I informed the patient (or authorized healthcare strategic partnership representative) that I reviewed their record and presented the opportunity for them to ask any questions regarding the visit today. The patient agreed to participate. History of Present Illness Reason for Consultation: Concern for episodes of changes in sensation/concern for seizure Requesting Physician: Dr. Griffin Attending Physician: Sheela Griffin MD History of Present Illness 28yo male presented with abdominal pain and reported episodes of changes in sensation prompting concern for seizure and neurological consultation. He has undergone imaging of his abdomen revealing evidence suggestive of SBO and a surgical consultation has been placed. Reportedly abdominal symptoms improving, at this time no surgical intervention is planned. He has undergone CT brain without contrast revealing no overt evidence of acute intracranial abnormality. I have performed televideo consultation. He is alert & oriented; able to answer all questions appropriately. Neurological exam is non lateralizing/nonfocal in terms of motor strength and coordination. Reports first noted event was approx 4 months ago at which time he felt as if he was dreaming/felt dizzy. Did not lose consciousness. Reported changes in taste sensation but denies changes in hearing or smelling. He reports another similar episode occurring but is unsure of exactly when but is able to report a third episode occurring approximately one week ago. he reports the episodes are all similar. He feels like things in his visual field become distant, he reports changes in taste and felling as if his surrounding have changed like he is dreaming. Reports feeling lightheaded/dizzy at the time as well but does not lose consciousness during these episodes. There is not report of tongue biting, loss of bowel or bladder. He reports being able to recall all events leading up to the episodes, through out the episodes and afterward as well. He describes them as short lasting only minutes. No reported hx of head trauma or concussion. He is aware of no driving as there is concern for possible seizure etiology. He is pending EEG and MRI. He denies SI/HI and he is agreeable to begin levetiracetam and follow up outpatient Neurology. Brother at bedside, all questions answered. 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 Oriented to person, place, and time. Fluency naming repetition and comprehension appear grossly intact. Affect remains appropriate. CN testing: I: Denies changes in ability to smell II:Reports no changes in visual acuity III/IV/: No evidence of gaze preference, hippus, nystagmus or roving eye movements V: Facial sensation reportedly grossly intact to light touch bilaterally VII: Facial movements appear without evidence of asymmetry VIII: Hearing appears grossly intact to loud voice bilaterally IX/X: Palate appears to elevate symmetrically XI: Shoulder shrug appears symmetric/ grossly intact bilaterally XII: Tongue protrudes midline without evidence of biting Motor exam: Strength appears grossly intact/symmetric in all extremities Sensory: Sensation is reportedly grossly intact throughout Coordination: Finger to nose and heel to hung were intact. No apparent evidence of dysmetria or dysdiadochokinesia Reflexes: Deferred Gait: Deferred Results & Data Vital Signs (Past 12 Hours) Vital Signs Pulse Resp BP Pulse Ox O2 Del Method 01/13/24 09:30 56 L 19 97/54 L 95 01/13/24 08:30 63 29 H 97/70 L 99 01/13/24 07:33 60 14 99 01/13/24 07:00 52 L 10 L 99 01/13/24 06:42 57 L 17 100 01/13/24 06:12 55 L 15 99 01/13/24 05:33 69 16 100/58 L 96 Room Air 01/13/24 05:09 55 L 25 H 97 01/13/24 04:09 53 L 01/13/24 04:00 57 L 15 96/52 L 95 01/13/24 03:00 56 L 13 134/75 97 Room Air Laboratory Results Abnormal lab results 01/12/24 01/12/24 01/13/24 Range/Units 16:26 19:00 07:07 MPV 9.3 L (9.4-12.4) fL Neut # (Auto) 6.78 H (1.40-6.50) K/uL [place] # (Auto) 0.67 H 1.07 H (0.11-0.59) K/uL Sodium 134 L (136-145) mmol/L Anion Gap 2 L (3-11) BUN/Creatinine Ratio 9.2 L (10-20) Glucose 113 H 101 H (70-99(Fasting)) mg/dl Urine pH 8.5 H (4.5-7.5) Urine Ketones 1+ H (Negative) Diagnostic Findings Abdomen/Pelvis CT 01/12/24 17:12 CT SCAN OF THE ABDOMEN AND PELVIS WITH IV CONTRAST CLINICAL HISTORY: Generalized abdominal pain. Vomiting. COMPARISON STUDY: No priors. TECHNIQUE: Following the IV administration of 93 cc of Optiray 320, CT scan of the abdomen and pelvis is performed from the lung bases to the proximal femora. Images are reviewed in the axial, sagittal, and coronal planes. IV contrast was administered without complication. A dose lowering technique was utilized adhering to the principles of ALARA. The examination is degraded by a paucity of intraperitoneal fat and lack of enteric contrast. CT DOSE: 349.96 mGy.cm FINDINGS: Lung bases: The heart is normal in size and without pericardial effusion. The lung bases are clear. Liver: The contrast-enhanced liver is normal in size, contour, and attenuation. There is no intrahepatic biliary ductal dilatation. The hepatic veins and portal veins are patent. Gallbladder: Contracted. Spleen: Normal in size and attenuation. Pancreas: Unremarkable. Adrenal glands: Unremarkable. Kidneys: The contrast enhanced kidneys are normal in size and without hydronephrosis. The kidneys enhance symmetrically. Abdominal vasculature: The abdominal aorta is normal in course and caliber. Bowel: There are distended and fluid-filled loops of small bowel in the pelvis which measure up to 3.2 cm diameter. A possible transition point is seen on image #20 of 55. There is no pneumatosis intestinalis or portal venous gas. The appendix is well-visualized and normal. Peritoneum: There is no intraperitoneal free air or abdominal ascites. Lymphadenopathy: None. Pelvic viscera: The bladder, prostate, and seminal vesicles are normal as visualized. Skeletal structures: No lytic or blastic lesions are seen. IMPRESSION: 1. There are focally distended and fluid-filled loops of small bowel in the pelvis. A possible transition point is identified and this likely represents a small bowel obstruction. Clinical correlation will be essential. 2. No intraperitoneal free air is identified. There is no pneumatosis intestinalis or portal venous gas. 3. Normal appendix. 4. Additional findings as above. ACT 112: Negative or not required by law. Electronically signed by: Stan Vigil M.D. 01/12/2024 8:[address] 01/13/24 05:20 CT head/brain wo con CLINICAL HISTORY: periods of loss of perception Technique: Contiguous axial CT images of the head were acquired from the base of the skull to the vertex without intravenous contrast administration. Images were viewed in brain, subdural and bone windows. Automated dose lowering techniques and/or adjustment according to patient size were utilized for this exam. Comparison: None available at the time of this dictation. Findings: The ventricles, basal cisterns, and cerebral sulci are normal. There is no acute intracranial hemorrhage or evidence of acute territorial infarction. Neither mass effect, shift of the midline structures, nor abnormal extra-axial fluid collections are shown. Imaged portions of the paranasal sinuses and mastoid air cells are clear. The orbits appear normal. There are no acute fractures of the calvaria or scalp swelling. Impression: No acute intracranial hemorrhage, no evidence of acute territorial infarction or other acute intracranial disease process. ACT 112: Negative or not required by law. Electronically signed by: Deyvi Bruner M.D. 01/13/2024 7:31 AM KUB X-Ray 01/13/24 08:00 XR KUB/Abdomen 1 view CLINICAL HISTORY: sbo TECHNIQUE: 1 view of the abdomen was obtained. Comparison: None available at the time of this dictation. FINDINGS: Lung bases are unremarkable. The osseous structures are grossly unremarkable. The bowel gas pattern is nonobstructive. Small stool burden is seen. IMPRESSION: Nonobstructive bowel gas pattern. ACT 112: Negative or not required by law. Electronically signed by: Deyvi Bruner M.D. 01/13/2024 8:19 AM Medications Administered Home Medications Medication Instructions Recorded Confirmed Last Taken No Known Home Medications 01/12/24 01/12/24 Unknown Active Medications Generic Name Dose Route Start Last Admin Trade Name Freq PRN Reason Stop Dose Admin Enoxaparin Sodium 40 mg 01/13/24 09:00 01/13/24 09:38 Enoxaparin Inj 40 Mg/0.4 Ml Syr SQ 02/12/24 08:59 40 mg Q24H RYDER Administration Dextrose/Sodium Chloride 1,000 mls @ 125 mls/hr 01/13/24 05:20 01/13/24 13:17 D5w And 1/2nss IV 02/12/24 05:19 125 mls/hr .Q8H RYDER Administration
[2024-01-13] MEDS: levETIRAcetam IV 500 MG in SODIUM CHLOR 0.9% MINI-B 100 ML IV SCH (15:18)
[2024-01-13] MEDS: GADOBUTROL 65ML VIAL IV ONE (18:56)
--- NOTE | 2024-01-13 22:23 | Magnetic Resonance Report ---
MRI OF THE BRAIN COMBO CLINICAL HISTORY: Seizure. COMPARISON STUDY: CT of the brain dated 01/13/2024. TECHNIQUE: MRI of the brain was performed utilizing various T1 and T2-weighted sequences in the axial , sagittal, and coronal planes. Contrast-enhanced sequences were acquired following the administratio n of 6 cc of Gadavist. The examination is performed using the seizure protocol. FINDINGS: Brain parenchyma: The brain parenchyma is normal in appearance. There is no hemorrhage or mass effect . There is no restricted diffusion to suggest acute ischemia. No enhancing mass lesion is identified on the postcontrast images. Flores-white matter differentiation is preserved. No extra-axial fluid humphrey ection is seen. The cerebellar tonsils are normal in configuration. The hippocampi are normal and sym metric. Ventricles, sulci, and cisterns: Normal in configuration. Pituitary and sella: Unremarkable. Intracranial vasculature: Normal flow voids are maintained at the skull base. Orbits: The bony orbits are grossly intact. Orbital contents are normal in appearance. Sinuses and mastoids: There is mild mucosal thickening in the maxillary antra. The remaining paranasa l sinuses are clear, as are the mastoid air cells. Calvarium: Unremarkable. Cervical cord: Partially visualized cervical spinal cord is normal in morphology and signal intensity . IMPRESSION: No acute intracranial abnormality. ACT 112: Negative or not required by law. Electronically signed by: Stan Vigil M.D. 01/13/2024 10:20 PM
--- NOTE | 2024-01-14 09:09 | Surgery Progress Note ---
Date of Service January 14, 2024 Assessment & Plan (1) SBO (small bowel obstruction): Plan: Pt here w/ concern for SBO KUB yesterday revealed non obstructive bowel gas pattern Tolerating clears, + flatus, - pain Will advance diet as tolerates Stable for discharge to home later today if diet advancement goes well We will sign off, please call with any questions/concerns Admission and Anticipated Discharge Date Admission Date: January 13, 2024 Supervising Physician Co-Signing Physician Notes I personally saw and evaluated the patient with Juju Graves PA-C and agree with the assessment and plan. 28 yo male with resolving SBO Tolerating clears, advance to low fiber Continues to pass flatus, no BM yet He has no abdominal pain If he tolerates his diet he can be discharged home later today after lunch Surgery will sign off at this time, please call with any questions or concerns Subjective Patient feeling better. Passing gas. Tolerating clears without nausea/vomiting. No BM yet Physical Exam Physical Exam: awake/alert, no distress Gastrointestinal (Abdomen): Inspection/Auscultation: abdomen not distended Percussion/Palpation: abdomen soft; abdomen nontender Results & Data Vital Signs (Past 12 Hours) Vital Signs Temp Pulse Pulse Resp BP BP Pulse Ox 01/14/24 07:54 97.9 F 54 L 18 92/47 L 99 01/14/24 06:55 51 L 01/14/24 04:37 01/14/24 04:32 51 L 01/14/24 04:29 97.5 F L 58 L 18 116/75 100 01/14/24 02:02 52 L 17 98/59 L 98 01/14/24 01:00 45 L 93/58 L 97 01/14/24 00:00 47 L 16 96/56 L 96 01/14/24 00:00 96/56 L 01/14/24 00:00 96/56 L 01/14/24 00:00 96/56 L 01/13/24 23:54 95 01/13/24 23:18 95 01/13/24 23:00 52 L 18 100/57 L 95 01/13/24 22:57 98 01/13/24 22:03 99 01/13/24 22:00 91/59 L 01/13/24 22:00 91/59 L 01/13/24 22:00 91/59 L 06/24/24 22:00 91/59 L 01/13/24 22:00 91/59 L 01/13/24 22:00 91/59 L 01/13/24 22:00 91/59 L 01/13/24 22:00 91/59 L 01/13/24 22:00 91/59 L 01/13/24 22:00 91/59 L 01/13/24 22:00 91/59 L 01/13/24 22:00 91/59 L 01/13/24 22:00 91/59 L 01/13/24 22:00 91/59 L 01/13/24 22:00 91/59 L 01/13/24 21:51 99 01/13/24 21:30 100 O2 Del Method 01/14/24 07:54 Room Air 01/14/24 06:55 01/14/24 04:37 Room Air 01/14/24 04:32 01/14/24 04:29 Room Air 01/14/24 02:02 Room Air 01/14/24 01:00 Room Air 01/14/24 00:00 Room Air 01/14/24 00:00 01/14/24 00:00 01/14/24 00:00 01/13/24 23:54 01/13/24 23:18 01/13/24 23:00 Room Air 01/13/24 22:57 01/13/24 22:03 Room Air 01/13/24 22:00 01/13/24 22:00 01/13/24 22:00 01/13/24 22:00 01/13/24 22:00 01/13/24 22:00 01/13/24 22:00 01/13/24 22:00 01/13/24 22:00 01/13/24 22:00 01/13/24 22:00 01/13/24 22:00 01/13/24 22:00 01/13/24 22:00 01/13/24 22:00 01/13/24 21:51 01/13/24 21:30 PG Care Time/CCT Total # of Minutes Spent Total Time Spent with Patient: Total time spent is greater than 50% in coordination of care (as documented) at patient's floor/unit and/or counseling patient: Coding Level of Care Code 48932 SUB INP/OBS CARE Diagnoses SBO (small bowel obstruction) K56.609
[2024-01-14] MEDS: levETIRAcetam 500 MG TAB PO SCH (10:29)
--- NOTE | 2024-01-14 10:44 | Electrocardiogram Report ---
Test Reason : Blood Pressure : / mmHG Vent. Rate : 050 BPM Atrial Rate : 050 BPM P-R Int : 142 ms QRS Dur : 086 ms QT Int : 410 ms P-R-T Axes : 060 082 072 degrees QTc Int : 373 ms Sinus bradycardia Diffuse ST elevation, most consistent with repolarization variant Otherwise normal ECG When compared with ECG of 12-JAN-2024 20:14, No significant change was found Confirmed by Matthew Espinoza ([id number]) on 01/14/2024 10:43:59 AM Referred By: REFERRED SELF Confirmed By:Matthew Espinoza
--- NOTE | 2024-01-14 12:07 | Discharge Summary ---
Discharge Summary Date of Service January 14, 2024 Principal Dx & Hospital Course #1 = Principal Diagnosis (1) SBO (small bowel obstruction): Mr. 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 Patient improved with conservative management. Patient reported episodes of "altered awareness" over the last four months. Neurology evaluated and concerned for questionable focal sensory aware seizures. Patient was advised no driving, neurology follow up, and keppra 500mg BID. Patient states that he does not think he may need the medication. It was strongly encouraged and follow up provided. Patient eating well on day of discharge. Patient counseled on low fiber diet and follow up with PCP established. Papers for medical assistance coordinated with Case Management. # small bowel obstruction #prior abdominal surgery in [place] came with abdominal pain and CAT scan showing small bowel obstruction responded to IVF, adominal exam benign Diet tolerated Low fiber diet Recommended pcp follow up and OP GI referral once insurance/med aid secured #Early repolarization # abnormal EKG evaluated by Cardiology, no further work up at this time #Focal sensory aware seizures MRI WNL, EEG read pending -Neurology -Recommends Keppra 500mg bid -no driving, pendot form filed -Patient declined to take keppra Neurology follow up with med aid secured for further metabolic/holter monitor eval Notes For Next Care Provider PENDOT form filed /2 concern for seizures Medication Changes From Visit Keppra 500mg BID sent to pharmacy--patient will consider taking Admission HPI Per Admitting Provider 28-year-old male with 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 Currently the pain is improved with pain medication. Denies any nausea. Had a bowel movement earlier in the morning. Currently not passing gas. Denies any fevers. Denies chest pain or shortness of breath. No cough. No headache. No runny nose or sore throat. Prior to this event patient states he was walking and climbing steps okay. Patient also reports episodes of loss of perceptions sometimes. Last time it happened when he was watching TV when suddenly felt everything was in the distance and then lost perception of the surroundings for few minutes and during episode he could not speak and after he comes back from the episode he seems confused for about 10 minutes and becomes normal. Denies any tongue biting or incontinence during this episode. Patient smokes marijuana daily. Smokes electric cigarette daily. Drinks alcohol about 3 times a week but not heavily. Denies any other drug use. Currently resting comfortably and hemodynamically stable. Some of the H&P got from his brother who translated for him and some from translation services. Patient is Kinyar[place]-speaking. Past medical's. As mentioned above. Past surgical history. Abdominal surgery x 2. Social history. Smokes e-cigarettes daily. Smokes marijuana daily. Alcohol about 3 times a week but no heavy drinking. No other drug use. Family history. Denies any family history. Admission Exam Per Admitting Provider General-Not in distress Head- atraumatic Eyes- PERRL. ENT- oropharynx clear Neck- supple, no JVD. Lungs- clear to auscultation no wheezing or crackles. Heart- regular rate and rhythm; no murmur, no gallop. Abdomen- sluggish bowel sounds, soft, nontender, no distension. Surgical scar seen. Extremities- no pretibial edema, no erythema seen. Neuro- alert, oriented PERRL, no facial palsy; no dysarthria; moves extremities. Discharge Exam Constitutional WD/WN, vitals as above Respiratory normal respiratory effort, lungs clear to auscultation Cardiovascular RRR, no murmur, no edema Gastrointestinal (Abdomen) normal bowel sounds, soft, nontender, no hepatosplenomegaly Updated Medication List Medication Instructions Recorded Confirmed Type levetiracetam 500 mg tablet 500 mg PO BID #60 tabs 01/14/24 Rx (Keppra) Hospital Stay Data Consultations 01/12/24 20:35 ED Decision to Admit Stat 01/13/24 08:00 Consult Cardiology Routine Consult General Surgery Routine Consult Neurology Routine Diagnostic Imagining Performed 01/12/24 17:12 CT Abd and Pelvis [CT abd pelvis IV con only] Stat 01/13/24 05:20 CT head/brain wo con Routine 01/13/24 14:00 MRI Brain [MR brain wo/w con] DAILY Pending Results Patient Have Any Pending Studies at Discharge: No Discharge Instructions Given to Patient (Per Discharging Provider) You were admitted for small bowel obstruction, this is usually due to a narro wing in the bowel (stricture) a partial blockage. It is recommended you continue a low fiber diet until you follow up with your new provider. How to reduce insoluble fiber in the diet? Remove stalks, stems, pips, seeds and skins from fruit and vegetables. Chop and cook vegetables well. Reduce tough, fibrous fruit and vegetables chop these foods finely where possible (e.g. celery, azar). Avoid dried fruits, nuts and seeds. Strain fruit and vegetable juices and soups. Avoid whole grain, high fibre breads and cereals. Use white varieties where possible. How to prevent constipation on a modified fiber diet? Eat low/moderate fibre fruits and vegetables (see table below) with stalks, stems, pips, seeds and skins removed. Puree or soft/well-cooked fruit and vegetables may be better tolerated than fresh/raw. Drink plenty of water. Most people need around 8-10 glasses of fluids per day. Discuss with your doctor if constipation is still a problem. You were evaluated by Neurology. There is concern for focal sensory aware seizures. No Driving Per [place] State Law. It is recommended you continue the following medication: -Keppra 500mg two times a day. You have a follow up with Neurology on 01/29 to discuss next steps in evaluating your seizures. Usted fue ingresado por mynor obstruccin del intestino rivas, esto generalmente se debe a un estrechamiento en el intestino (estriccin) o mynor obstruccin parcial. Se recomienda que contine con mynor dieta baja en fibra hasta que realice el seguimiento con rosales nuevo proveedor. Nutrition Coordinator reducir la fibra insoluble en la dieta? Retire los tallos, tallos, pepitas, semillas y pieles de frutas y verduras. Picar y cocinar familia las verduras. Reduzca las frutas y verduras duras y fibrosas: pique estos alimentos finamente siempre que sea posible (por ejemplo, apio, azar). Evite las frutas secas, nueces y semillas. Cuela jugos y sopas de frutas y verduras. Evite los panes y cereales integrales con alto contenido de fibra. Utilice variedades ginger siempre que sea posible. Nutrition Coordinator prevenir el estreimiento con mynor dieta modificada en fibra? Consuma frutas y verduras bajas o moderadas en fibra (consulte la tabla a continuacin) sin tallos, pepitas, semillas ni piel. Las frutas y verduras en pur o blandas/familia cocidas pueden tolerarse mejor que las frescas/crudas. Beber abundante agua. La mayora de las personas necesitan entre 8 y 10 vasos de lquido al da. Hable con rosales mdico si el estreimiento sigue siendo un problema. Fuiste evaluado por Neurologa. Existe preocupacin por las convulsiones focales de conciencia sensorial. Prohibido conducir segn la gabby estatal de [place]. Se recomienda continuar con la siguiente medicacin: -Keppra 500 mg dos veces al da. Tiene mynor tahir de seguimiento con Neurologa el para analizar los prximos pasos en la evaluacin de cynthia convulsiones. Qu es mynor convulsin focal (convulsin parcial)? Usted o alguien ms ward notado que parte de rosales cuerpo se mueve o tiembla involuntariamente? T Tiene perodos cortos en los que se siente confundido, tiene prdida de memoria o parece actuar de manera inusual? Eres A veces no te gallegos cuenta de tus acciones o incluso te desmayas por unos momentos? Si es as, es posible que estar experimentando convulsiones focales. Estos ocurren cuando usted tiene mynor condicin llamada epilepsia. Focal Las convulsiones (formalmente llamadas convulsiones parciales) pueden ser aterradoras y frustrantes. [place] normalmente pueden ser revisado. Nutrition Coordinator funciona el cerebro Rosales cerebro utiliza breves rfagas de electricidad orquidea susy. Estas susy permiten que reas del cerebro comunicarse entre s. Estas susy tambin viajan desde el cerebro al candice del cuerpo. Cuando parte del cerebro se "sobrecarga" A veces las susy se vuelven excesivas. Cuando esto sucede en un genesis del cerebro, se llama mynor convulsin focal. Las susy excesivas hacen que parte del cuerpo funcione de manera anormal. Entonces puedes contraerse, sentirse confundido o desmayarse por un momento. Las convulsiones focales pueden presentarse de muchas maneras. Las convulsiones conscientes de inicio focal (antes, convulsiones parciales simples) a menudo tienen slo unos pocos sntomas menores. sntomas, orquidea espasmos en las wili, cambios visuales, oler un olor inusual o sentir mynor sensacin de dj-vu. No hay prdida del conocimiento. Las convulsiones focales con alteracin de la conciencia (anteriormente convulsiones parciales complejas) a menudo estn relacionadas con comportamiento ms anormal. Tambin pueden afectar rosales funcionamiento mental hasta cierto punto. Es posible que tenga un nivel reducido de conciencia, confusin mental o prdida de memoria. Las convulsiones focales se pueden controlar Las convulsiones pueden ser causadas por irritacin o allyssa al cerebro debido a lesiones, formacin de cicatrices, tumores, accidente cerebrovascular o infeccin. Generalmente se desconoce la causa. [place] la mayora de las convulsiones parciales pueden ser exitosas. tratado. Con tratamiento, la mayora de las personas con convulsiones llevan mynor guy normal y plena. Total Time Total Time Spent Total Time Spent (In Minutes): 45
== END 2024-01-14 13:07 | disposition home or self-care (01) | DRG 389 ==
LOC: ED 16:13 → EDINP 01-13 03:09 → 2N 01-13 05:21